=== PATIENT | female | born 1950 | race Hispanic/Latino ===

== ENCOUNTER → 2018-06-08 | Outpatient (CLI) | payer MEDICARE ==
[~2018-06-08] MED LIST: ACIPHEX20 MG PO; ATORVASTATIN CA10 MG PO; CELEBREX200 MG PO; GEMFIBROZIL600 MG PO; GLIPIZIDE5 MG PO; INVOKANA PO; IOPAMIDOL 370 MG/ML 200 ML INFUS..BTL INJ ONE; JANUMET XR 1001 EACH PO; METFORMIN HCL500 MG PO; PANTOPRAZOLE SO40 MG PO; PERCOCET 10-321 EACH PO; SODIUM CHLORIDE 0.9% 50ML 50 ML ONE; ULTRAM50 MG PO; VALIUM5 MG PO
[2018-06-08 10:18] LABS: BLOOD UREA NITROGEN 20 mg/dL (7-26); BUN/CREATININE RATIO 24 (6-25); CREATININE, SERUM 0.84 mg/dL (0.57-1.11); EST GLOMERULAR FILTRATION RATE > 60 ML/MIN (60-)
--- NOTE | 2018-06-08 12:22 | Diagnostic Imaging Report ---
PROCEDURE: CT ABDOMEN AND PELVIS WITH CONTRAST TECHNIQUE: The abdomen and pelvis were scanned utilizing a multidetector helical scanner from the diaphragm to the lesser trochanter after the IV administration of 100 cc of Isovue 370 and the oral administration of 900 cc of water. Coronal and sagittal multiplanar reformations were obtained. COMPARISON: MRI Abdomen 11/29/2014. INDICATIONS: UPPER ABDOMEN PAIN FINDINGS: LOWER THORAX: Patchy dependent atelectasis. Large hiatal hernia. HEPATOBILIARY: No focal hepatic lesions. Prominence of the common bile duct is again noted, likely reflecting post cholecystectomy status. SPLEEN: No splenomegaly. PANCREAS: No focal masses or ductal dilatation. 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 KIDNEYS/URETERS: No hydronephrosis or stones. 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 PELVIC ORGANS/BLADDER: Status post hysterectomy. PERITONEUM / RETROPERITONEUM: No free air or fluid. LYMPH NODES: No lymphadenopathy. VESSELS: Unremarkable. GI TRACT: No distention or wall thickening. BONES AND SOFT TISSUES: Fat containing umbilical hernia and fat containing bilateral umbilical hernias. No evidence of well defined lesion in the subcutaneous tissues of the upper abdomen. IMPRESSION: No evidence of well defined lesion in the subcutaneous tissues of the upper abdomen as clinically queried. Status post cholecystectomy. Large hiatal hernia. Dictated by: MORGAN PERERA M.D. on 06/08/2018 at 12:31 Electronically approved by: MORGAN PERERA M.D. on 06/08/2018 at 12:31
== END ==
LOC: CT 08:58
PROVIDERS: ATTEND Internal Medicine Gastroenterology
DX: R10.10 Upper abdominal pain, unspecified (principal); K42.9 Umbilical hernia without obstruction or gangrene
CPT/HCPCS: 36415; 74177; 82565; 84520; Q9967

== ENCOUNTER → 2022-06-11 | Outpatient (CLI) | payer MEDICARE ==
[~2022-06-11] MED LIST changes: +FARXIGA10 MG PO; -IOPAMIDOL 370 MG/ML 200 ML INFUS..BTL INJ ONE; +LEVOCETIRIZINE D5 MG PO; +LEXAPRO10 MG PO; -SODIUM CHLORIDE 0.9% 50ML 50 ML ONE; +TRADJENTA5 MG PO
== END ==
LOC: CT 14:33
PROVIDERS: ATTEND Family Medicine
DX: R10.9 Unspecified abdominal pain (principal); R31.9 Hematuria, unspecified; S39.012A Strain of muscle, fascia and tendon of lower back, initial encounter; S32.030A Wedge compression fracture of third lumbar vertebra, initial encounter for closed fracture; M51.36 Other intervertebral disc degeneration, lumbar region
CPT/HCPCS: 72131; 74176

== ENCOUNTER → 2022-11-19 | Outpatient (CLI) | payer MEDICARE | LOC: RAD 10:13 | DX: M25.561 Pain in right knee (principal) ==

== ENCOUNTER → 2022-12-14 | Day surgery (SDC) | payer MEDICARE ==
[2022-12-09 11:20] LABS: BASOPHILS % 0.5 % (0.0-1.0); EOSINOPHILS # (AUTO) 0.1 (0.0-0.4); HEMATOCRIT 40.1 % (34.2-44.1); HEMOGLOBIN 13.3 g/dL (12.0-16.0); LYMPHOCYTES # (AUTO) 2.1 (1.0-3.2); LYMPHOCYTES % 26.1 % (18.0-39.1); MEAN CORPUSCULAR HEMOGLOBIN 29.4 pg (28-32); MEAN CORPUSCULAR HGB CONC 33.2 g/dL (31-35); MEAN CORPUSCULAR VOLUME 88.7 fL (81-99); MONOCYTES # (AUTO) 0.6 (0.2-0.8); MONOCYTES % 7.3 % (4.4-11.3); NEUTROPHILS # (AUTO) 5.2 (2.1-6.9); NEUTROPHILS % 64.6 % (38.7-80.0); PLATELET COUNT 230 x10e3/uL (140-360); RED BLOOD COUNT 4.52 x10e6/uL (3.6-5.1); RED CELL DISTRIBUTION WIDTH 14.1 % (11.7-14.4)
[~2022-12-14] MED LIST changes: +ACARBOSE100 MG PO; +AMITRIPTYLINE H25 MG PO; +FENTANYL CITRATE/PF 100MCG/2 ML INJ ONE; +LACTATED RINGER'S 1,000 ML ONE; +LIDOCAINE HCL 2% LOCAL INJ 5 ML SDV VIAL INJ ONE; +METFORMIN HCL500 M1 PO; +MONTELUKAST SOD10 MG PO; +POVIDONE IODINE 0.05% 0.05 % ML PO ONE; +PROPOFOL IV EMULSION 10 MG/ML 20 ML VIAL ONE; +PROPOFOL IV EMULSION 50 ML IV ONE; +ZESTRIL2.5 MG PO
[2022-12-14 16:00] VITALS: BP 136/82; PULSE 77; RESP 16; O2SAT 98
== END | disposition home or self-care (01) ==
LOC: OR 14:14
PROVIDERS: ATTEND Internal Medicine Gastroenterology
DX: K21.9 Gastro-esophageal reflux disease without esophagitis (principal); K63.5 Polyp of colon; K31.7 Polyp of stomach and duodenum; K29.50 Unspecified chronic gastritis without bleeding; K20.90 Esophagitis, unspecified without bleeding; K44.9 Diaphragmatic hernia without obstruction or gangrene; K31.89 Other diseases of stomach and duodenum; K57.30 Diverticulosis of large intestine without perforation or abscess without bleeding; K64.8 Other hemorrhoids; I10 Essential (primary) hypertension; E78.5 Hyperlipidemia, unspecified; J45.909 Unspecified asthma, uncomplicated; E11.9 Type 2 diabetes mellitus without complications; G89.29 Other chronic pain; M19.90 Unspecified osteoarthritis, unspecified site; F32.A Depression, unspecified; Z01.810 Encounter for preprocedural cardiovascular examination; Z01.812 Encounter for preprocedural laboratory examination; Z79.84 Long term (current) use of oral hypoglycemic drugs; Z79.899 Other long term (current) drug therapy
CPT/HCPCS: 36415 ×2; 43239; 43450; 45385; 82948; 85025; 93005; C9113; J2001; J2704 ×2; J3010; J7121

== ENCOUNTER → 2025-03-12 | Outpatient (REF) | payer MEDICARE ==
[~2025-03-12] MED LIST changes: -FENTANYL CITRATE/PF 100MCG/2 ML INJ ONE; -LACTATED RINGER'S 1,000 ML ONE; -LIDOCAINE HCL 2% LOCAL INJ 5 ML SDV VIAL INJ ONE; -POVIDONE IODINE 0.05% 0.05 % ML PO ONE; -PROPOFOL IV EMULSION 10 MG/ML 20 ML VIAL ONE; -PROPOFOL IV EMULSION 50 ML IV ONE
== END ==
LOC: MRI 12:32
PROVIDERS: ATTEND Psychiatry & Neurology Child & Adolescent Psychiatry
DX: G31.84 Mild cognitive impairment of uncertain or unknown etiology (principal)
CPT/HCPCS: 70551